=== PATIENT | female | born 1955 | race Caucasian/White ===

== ENCOUNTER → 2018-03-05 | Outpatient (CLI) | payer OTHER ==
--- NOTE | 2018-03-05 16:00 | KCIC ---
EXAM: Lumbar spine, 3 views; pelvis and left hip, 3 views. HISTORY: Pain. COMPARISON: None. FINDINGS: Lumbar spine: Frontal, lateral and coned sacral views of the lumbar spine are obtained. There are 6 nonrib-bearing lumbar vertebral segments or there are hypoplastic T12 ribs with 5 nonrib-bearing segments. For this dictation. The last lumbar segment is considered L5. There is mild dextroscoliosis centered at L2. There is grade 1 anterolisthesis of L4 on L5, measuring 2 mm. There is mild facet arthropathy at the lower lumbar levels. Pelvis and left hip: A frontal view the pelvis and frontal and frog-leg views left hip are obtained. There is no fracture, dislocation or subluxation. There is mild bilateral acetabular and femoral head spurring. There is degenerative subchondral sclerosis involving both hips. There is a prominent right os acetabulum or chronic fragmented osteophyte. There is degenerative subchondral sclerosis involving the sacroiliac joints. IMPRESSION: 1. No acute osseous finding. 2. Mild multilevel degenerative change involving the lumbar spine. 2. Mild bilateral hip osteoarthritis. Electronically signed by: Esther Cruz MD (03/05/2018 3:56 PM) [facility]-KCIC1
== END | disposition home or self-care (01) ==
LOC: KCIC 14:49
PROVIDERS: ATTEND Nurse Practitioner Family
DX: M16.12 Unilateral primary osteoarthritis, left hip (principal); M16.11 Unilateral primary osteoarthritis, right hip; M47.896 Other spondylosis, lumbar region
CPT/HCPCS: 72100; 73502

== ENCOUNTER 2018-03-27 11:13 | Emergency (ER) | payer OTHER ==
[~2018-03-27] VITALS: Ht 154.9 cm; Wt 96.2 kg
[2018-03-27 12:45] VITALS: BP 148/81
[2018-03-27] MEDS ORDERED: KETOROLAC 60 MG/2 ML VIAL. IM ONE (13:15)
[2018-03-27] MEDS ORDERED: METH4TAB2 PO (13:33)
--- NOTE | 2018-03-27 13:37 | PHYS DOC ---
Past Medical History Past Medical History: Depression, Diabetes-Type II, Other Additional Past Medical Histor: neuropathy Past Surgical History: Cholecystectomy, , Tonsillectomy Alcohol Use: None Drug Use: None Adult General Chief Complaint Chief Complaint: BACK PAIN OR INJURY HPI HPI Patient is a 62 year old female who presents with pain radiating through her left lower buttock into her leg. The patient tripped over her dog approximately one week ago. She states that this exacerbated her chronic pain that she has been experiencing since September. She denies spontaneous loss of bowel or bladder, saddle numbness or foot drop. Review of Systems Review of Systems Constitutional: Denies fever or chills [] Eyes: Denies change in visual acuity, redness, or eye pain [] HENT: Denies nasal congestion or sore throat [] Respiratory: Denies cough or shortness of breath [] Cardiovascular: No additional information not addressed in HPI [] GI: Denies abdominal pain, nausea, vomiting, bloody stools or diarrhea [] : Denies dysuria or hematuria [] Musculoskeletal: See history of present illness Integument: Denies rash or skin lesions [] Neurologic: Denies headache, focal weakness or sensory changes [] Endocrine: Denies polyuria or polydipsia [] All other systems were reviewed and found to be within normal limits, except as documented in this note. Current Medications Current Medications Current Medications Medications (Trade) Dose Ordered Sig/Gerry Start Time Stop Time Status Last Admin Dose Admin Ketorolac Tromethamine (Toradol Im) 60 mg 1X ONCE 03/27/18 13:15 03/27/18 13:33 DC 03/27/18 13:15 60 MG Allergies Allergies Allergies Coded Allergies Type Severity Reaction Last Updated Verified No Known Drug Allergies 03/27/18 No Physical Exam Physical Exam Constitutional: Well developed, well nourished, no acute distress, non-toxic appearance. [] Cardiovascular:Heart rate regular rhythm, no murmur [] Lungs & Thorax: Bilateral breath sounds clear to auscultation [] Abdomen: Bowel sounds normal, soft, no tenderness, no masses, no pulsatile masses. [] Skin: Warm, dry, no erythema, no rash. [] Back: No point spinal tenderness, tenderness over left SI joint with palpation radiating into buttock, no CVA tenderness. [] Extremities: No tenderness, no cyanosis, no clubbing, ROM intact, no edema. [] Neurologic: Alert and oriented X 3, normal motor function, normal sensory function, no focal deficits noted. [] Psychologic: Affect normal, judgement normal, mood normal. [] Current Patient Data Vital Signs Vital Signs Date Time Temp Pulse Resp B/P (MAP) Pulse Ox O2 Delivery O2 Flow Rate FiO2 03/27/18 12:45 98.0 65 16 148/81 (103) 98 Room Air 98.0 EKG EKG [] Radiology/Procedures Radiology/Procedures [] Course & Med Decision Making Course & Med Decision Making Pertinent Labs and Imaging studies reviewed. (See chart for details) []The patient was given Toradol in the emergency department for pain. Dragon Disclaimer Dragon Disclaimer This electronic medical record was generated, in whole or in part, using a voice recognition dictation system. Departure Departure Impression: Primary Impression: Sciatica Disposition: HOME, SELF-CARE Condition: STABLE Referrals: JONAH DEL RIO APRN (PCP) Patient Instructions: Sciatica Additional Instructions: Take the medication as directed. Watch her blood sugars closely while you're taking this medication. Keep your follow-up appointments with your primary care provider as scheduled or sooner if worsening. Scripts Methylprednisolone (MEDROL) 4 Mg Tab.ds.pk 1 PKG PO UD for sciatica, #1 PKG Prov: BRANDIN WEBBER APRN 03/27/18 BRANDIN WEBBER APRN Mar 27, 2018 13:37
== END 2018-03-27 14:14 | disposition home or self-care (01) ==
LOC: ER 11:13
DX: M54.42 Lumbago with sciatica, left side (principal); G89.29 Other chronic pain; E11.40 Type 2 diabetes mellitus with diabetic neuropathy, unspecified; Z90.49 Acquired absence of other specified parts of digestive tract
CPT/HCPCS: 96372; 99284; J1885

== ENCOUNTER → 2019-01-14 | Outpatient (CLI) | payer OTHER ==
[~2019-01-14] MED LIST: METH4TAB2 PO
--- NOTE | 2019-01-14 16:53 | KCIC ---
EXAMINATION: Magnetic resonance imaging (MRI) of the lumbar spine without contrast 01/14/2019 4:15 PM HISTORY: Lumbar pain with radiation down left leg. TECHNIQUE: Multiplanar multi-weighted MRI of the lumbar spine was performed without intravenous contrast using the standard lumbar spine protocol. Contrast information: None administered. COMPARISON: None available. FINDINGS: The alignment of the lumbar spine is normal. Vertebral bodies demonstrate normal signal intensity on all sequences. There are no compression fractures. The conus medullaris terminates at the level of L1. The distal spinal cord signal intensity is normal. Mild disc desiccation is noted at L2-L3, L3-L4 and L4-L5. Limited views of the abdomen and pelvis show no soft tissue abnormality. The aorta is normal. Mild congenital narrowing of the spinal canal secondary to shortened pedicles. Findings are most prominent at L3-L4. L2-L3: The disc is normal in configuration. There is mild facet arthropathy. There is no neuroforaminal stenosis. There is no spinal canal stenosis. L3-L4: The disc is normal in configuration. There is moderate facet arthropathy. There is no neuroforaminal stenosis. There is no spinal canal stenosis. L4-L5: Mild disc bulge. There is moderate facet arthropathy. There is mild right neuroforaminal stenosis. There is no spinal canal stenosis. L5-S1: The disc is normal in configuration. There is mild to moderate facet arthropathy. There is no neuroforaminal stenosis. There is no spinal canal stenosis. IMPRESSION: Mild degenerative changes are present, as described in detail above. Electronically signed by: Columba Mendoza MD (01/14/2019 4:50 PM) [facility]-KCIC1
== END | disposition home or self-care (01) ==
LOC: KCIC MRI 16:04
PROVIDERS: ATTEND Nurse Practitioner Family
DX: M47.816 Spondylosis without myelopathy or radiculopathy, lumbar region (principal); M48.061 Spinal stenosis, lumbar region without neurogenic claudication; M12.88 Other specific arthropathies, not elsewhere classified, other specified site; Z90.89 Acquired absence of other organs; Z90.49 Acquired absence of other specified parts of digestive tract
CPT/HCPCS: 72148

== ENCOUNTER → 2019-02-28 | Outpatient (CLI) | payer OTHER ==
--- NOTE | 2019-02-28 15:05 | KCIC ---
EXAM: Carotid Doppler sonogram. HISTORY: Diabetic retinopathy. TECHNIQUE: Sarah scale and color Doppler sonographic evaluation of the neck with spectral waveform analysis was performed and static images are submitted for review. FINDINGS: There is mild atherosclerotic plaque within the carotid bifurcations. The peak systolic velocity within the right common carotid artery is 117 cm/sec. The peak systolic velocity within the right internal carotid artery is 75 cm/sec and the end diastolic velocity within the right internal carotid artery is 25 cm/sec. The right ICA/CCA ratio is 0.96. The peak systolic velocity within the left common carotid artery is 72 cm/sec. The peak systolic velocity within the left internal carotid artery is 75 cm/sec and the end diastolic velocity within the left internal carotid artery is 29 cm/sec. The left ICA/CCA ratio is 1.04. There is normal antegrade flow within both vertebral arteries. IMPRESSION: No Doppler evidence of hemodynamically significant stenosis within the carotid or vertebral arteries. PQRS Compliance Statement - Stenosis calculations for CT, MR and conventional angiography are based upon measurement of the distal ICA diameter in accordance with the NASCET methodology. Stenosis calculations for carotid ultrasound studies are derived from validated velocity criteria which are known to correlate with the NASCET methodology. Electronically signed by: Esther Cruz MD (02/28/2019 3:02 PM) [id number]
== END | disposition home or self-care (01) ==
LOC: KCIC US 14:14
PROVIDERS: ATTEND Nurse Practitioner Family
DX: I65.23 Occlusion and stenosis of bilateral carotid arteries (principal); E11.3599 Type 2 diabetes mellitus with proliferative diabetic retinopathy without macular edema, unspecified eye
CPT/HCPCS: 93880

== ENCOUNTER → 2020-03-19 | Outpatient (CLI) | payer OTHER ==
[~2020-03-19] MED LIST changes: +ACET325T9 PO; +CITA10TA4 PO; +DAPA5TAB PO; +GABA-585 PO; +GABA300C18 PO; +LISI1TAB20 PO; +MELO15TA23 PO; +METF100010 PO; +OMEG10005 PO; +VITA1TAB31 PO
[2020-03-19 10:40] LABS: CHOLESTEROL/HDL RATIO 3.4
== END ==
LOC: LAB 09:20
PROVIDERS: ATTEND Specialist
DX: E11.69 Type 2 diabetes mellitus with other specified complication (principal); E78.5 Hyperlipidemia, unspecified
CPT/HCPCS: 36415; 80061

== ENCOUNTER → 2020-03-19 | Outpatient (CLI) | payer OTHER ==
[2020-03-19 10:11] LABS: BASO # 0.1 x10^3/uL (0.0-0.2); BASO % 1 % (0-3); EOS # 0.1 x10^3/uL (0.0-0.7); EOS % 1 % (0-3); HEMATOCRIT 41.9 % (36.0-47.0); HEMOGLOBIN 14.5 g/dL (12.0-15.5); LYMPH # 2.4 x10^3/uL (1.0-4.8); LYMPH % 41 % (24-48); MEAN CORPUSCULAR HEMOGLOBIN 33 pg (25-35); MEAN CORPUSCULAR HGB CONC 35 g/dL (31-37); MEAN CORPUSCULAR VOLUME 94 fL (79-100); MONO # 0.3 x10^3/uL (0.0-1.1); MONO % 6 % (0-9); NEUT # 2.9 x10^3/uL (1.8-7.7); NEUT % 51 % (31-73); PLATELET COUNT 253 x10^3/uL (140-400); RED BLOOD COUNT 4.45 x10^6/uL (3.50-5.40); RED CELL DISTRIBUTION WIDTH 12.9 % (11.5-14.5); WHITE BLOOD COUNT 5.8 x10^3/uL (4.0-11.0)
[2020-03-19 10:25] LABS: PROTHROMBIN TIME PATIENT 12.9 SEC (11.7-14.0)
--- NOTE | 2020-03-19 10:26 | EKG ---
[facility] [address] [place] [address] Test Date: 2020-03-19 Test Time: 10:22:47 Pat Name: VANESSA BALL Department: Room: Gender: F [employer] Operator: : 1955 Requested By: JUAN ANTONIO LENNON Order Number: [id number] Reading MD: Clint Guerra MD Measurements Intervals Wagner Rate: 87 P: 7 NV: 180 QRS: -5 QRSD: 86 T: 39 QT: 364 QTc: 439 Interpretive Statements SINUS RHYTHM NON-SPECIFIC ST/T CHANGES Electronically Signed On 03-20-2020 8:43:59 CONSTRUCTION PRODUCER by Clint Guerra MD
[2020-03-19 10:31] LABS: ALBUMIN 4.1 g/dL (3.4-5.0); C-REACTIVE PROTEIN 1.9 mg/L (0-3.3); CALCIUM 9.9 mg/dL (8.5-10.1); CREATININE 0.9 mg/dL (0.6-1.0); POTASSIUM 3.6 mmol/L (3.5-5.1)
--- NOTE | 2020-03-19 13:13 | RAD ---
Two-view chest dated 03/19/2020. Comparison made to 12/07/2010. Clinical data indication: Preop for hip replacement. FINDINGS: PA and lateral views obtained. Heart and mediastinal contours are stable. Lungs are clear. No consoli dation or pleural effusion. No pneumothorax. Mildly prominent perihilar linear markings, unchanged. IMPRESSION: No acute radiographic abnormality. Stable findings compared to 12/07/2010. Electronically signed by: Freddy Rodriguez MD (03/19/2020 1:11 PM) [id number]
[2020-03-20 01:10] LABS: HEMOGLOBIN A1C 6.9 % (4.8-5.6)
== END ==
LOC: SURGPAT 09:15
PROVIDERS: ATTEND Orthopaedic Surgery
DX: Z01.818 Encounter for other preprocedural examination (principal); M16.12 Unilateral primary osteoarthritis, left hip
CPT/HCPCS: 36415; 71046; 80048; 82040; 82306; 83036; 85025; 85610; 85730; 86140; 87641; 93005

== ENCOUNTER → 2020-04-05 | Outpatient (CLI) | payer OTHER ==
[~2020-04-05] MED LIST changes: +OXYC5CAP PO; +TRAM50TA PO; +WARF4TAB64 PO
== END ==
LOC: LAB 10:05
PROVIDERS: ATTEND Orthopaedic Surgery
DX: Z01.812 Encounter for preprocedural laboratory examination (principal); Z20.828 Contact with and (suspected) exposure to other viral communicable diseases; M16.12 Unilateral primary osteoarthritis, left hip
CPT/HCPCS: U0003

== ENCOUNTER 2020-04-10 07:19 | Observation (INO) | payer OTHER ==
[2020-04-10] VITALS (9 sets, daily range): BP systolic 102–139; BP diastolic 56–79
[~2020-04-10] VITALS: Ht 154.9 cm; Wt 208.0 kg
[~2020-04-10 07:19] MED LIST changes: +ACETAMINOPHEN 500 MG TABLET PO PRN; +GABAPENTIN 300 MG CAPSULE. PO PRN; +MELOXICAM 7.5 MG TABLET PO PRN; +MORPHINE SULFATE 5 MG, KETOROLAC 30MG VIAL 30 MG, ROPIVacaine 0.5% PF 60 ML, EPINEPHrin... INT ART ONE; -OXYC5CAP PO; -TRAM50TA PO; +TRANEXAMIC ACID 1,000 MG in IV NS 50ML -- 1ST BAG INJ ONE; -WARF4TAB64 PO
[2020-04-10] MEDS ORDERED: TRANEXAMIC ACID 1,000 MG in IV NS 50ML -- 2ND BAG INJ ONE (08:00)
[2020-04-10] MEDS ORDERED: VANCOMYCIN 1GM IVPB FOR OMNI 250 ML IV ONE (08:30)
[2020-04-10] MEDS ORDERED: ROCURONIUM 50 MG/5 ML VIAL. ONE (08:33)
[2020-04-10] MEDS ORDERED: PROPOFOL 10 MG/ML (20ML) VIAL. IV ONE (08:33)
[2020-04-10] MEDS ORDERED: LIDOCAINE 2% PF 5 ML VIAL. ONE (08:33)
[2020-04-10] MEDS ORDERED: fentaNYL PF VIAL 250 MCG/5 ML VIAL ONE (08:33)
--- NOTE | 2020-04-10 08:36 | HP ---
ADMIT DATE: 04/10/2020 CHIEF COMPLAINT: Left hip pain. 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 It is much more severe on startup and with activities and unresponsive to nonoperative management. PAST MEDICAL HISTORY: Significant for type 2 diabetes and hypertension. SURGICAL HISTORY: Cholecystectomy, tonsil/adenoidectomy, breast biopsy, , diabetic retinopathy in her left eye, for which she underwent laser surgery. FAMILY HISTORY: Significant for her mother, who is with breast cancer and type 2 diabetes, heart disease, type 2 diabetes, heart attack, hypertension, and lung disease in her father. Brother and sister are alive and healthy. SOCIAL HISTORY: She is a former smoker, quit well over 10 years ago. Occasional social alcohol consumption. Denies drug use. She is . 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 ALLERGIES: INCLUDE ILOSONE, WHICH CAUSED HER BLEEDING; this is an older drug been withdrawn from the market years ago and A FOOD ALLERGY TO BANANAS. REVIEW OF SYSTEMS: She denies any chest pain, shortness of breath, recent febrile illness or constitutional symptoms. Left hip pain is progressive, however. PHYSICAL EXAMINATION: VITAL SIGNS: Per admission sheet. HEENT: Atraumatic, normocephalic. HEART: Regular rate and rhythm. LUNGS: Clear to auscultation bilaterally. ABDOMEN: Benign. EXTREMITIES: Examination of the left hip reveals a decreased terminal range of motion in all planes. Pain at her already decreased terminal range of motion. Leg lengths are equal. There is no instability. Negative straight leg raise sign. Normal examination of the right hip. Normal alignment and stability, bilateral knees and ankles. IMAGING: X-rays show severe degenerative change with loss of joint space in the left hip joint. IMPRESSION: Degenerative left hip. TREATMENT PLAN: We had covered risks, benefits, postoperative course of total hip arthroplasty as she has not responded to nonoperative management. We talked about the possibility of infection, leg length inequality, premature wear or loosening, instability, nerve or blood vessel damage, medical or other anesthetic complications among others and she wishes to proceed with surgical evaluation and treatment with joint center observation to follow. JUAN ANTOINO LENNON MD DR: MARIAH/eile JOB#: [id number] / [id number]
[2020-04-10] MEDS ORDERED: IV RINGERS,LACTATED 1000ML 1,000 ML IV SCH ×2 (09:00→12:15)
[2020-04-10] MEDS ORDERED: VANCOMYCIN 1 GM VIAL. ONE (09:21)
[2020-04-10] MEDS ORDERED: INSULIN LISPRO 100 UNIT/ML 3ML VIAL for OP,RR ONLY. SQ PRN (09:45)
[2020-04-10] MEDS ORDERED: ePHEDrine PF IN SALINE 50 MG/10 ML SYRINGE. IV ONE (09:51)
[2020-04-10] MEDS ORDERED: ONDANSETRON PF 4 MG/2 ML VIAL. ONE (10:26)
[2020-04-10] MEDS ORDERED: NEOSTIGMINE METHYLSULFATE 5 MG/5 ML SYRINGE. ONE (10:26)
[2020-04-10] MEDS ORDERED: GLYCOPYRROLATE 1 MG/5 ML VIAL. ONE (10:26)
[2020-04-10] MEDS ORDERED: SEVOFLURANE 61 TO 120 MINUTES. IH ONE (10:26)
[2020-04-10 10:32] LABS: PROTHROMBIN TIME PATIENT 12.2 SEC (11.7-14.0)
[2020-04-10] MEDS ORDERED: HYDROmorphone 2 MG/ML VIAL ONE (10:37)
[2020-04-10] MEDS ORDERED: fentaNYL PF VIAL 100 MCG/2 ML VIAL IVP PRN (11:30)
[2020-04-10] MEDS ORDERED: CALCIUM CARBONATE 500 MG TAB.CHEW PO PRN (11:30)
[2020-04-10] MEDS ORDERED: 0.9 % SODIUM CHLORIDE 10 ML DISP.SYRIN. IV PRN (11:30)
[2020-04-10] MEDS ORDERED: MORPHINE SULFATE 2 MG/ML VIAL. IVP PRN (11:30)
[2020-04-10] MEDS ORDERED: ZOLPIDEM 5 MG TABLET. PO PRN (11:30)
[2020-04-10] MEDS ORDERED: DEXTROSE 50% 25 GM / 50ML DISP.SYRIN. IV PRN (11:30)
[2020-04-10] MEDS ORDERED: diphenhydrAMINE 50 MG/ML VIAL IVP PRN (11:30)
[2020-04-10] MEDS ORDERED: IV NORMAL SALINE 1000ML BAG 1,000 ML IV SCH (11:30)
[2020-04-10] MEDS ORDERED: PROCHLORPERAZINE 5 MG TABLET. PO PRN (11:30)
[2020-04-10] MEDS ORDERED: fentaNYL PF VIAL 100 MCG/2 ML VIAL ONE (11:56)
[2020-04-10] MEDS: ONDANSETRON ODT 4 MG TAB.RAPDIS. PO SCH ×2 (12:00→18:35)
[2020-04-10] MEDS: ONDANSETRON PF 4 MG/2 ML VIAL. IVP SCH (12:00)
[2020-04-10] MEDS ORDERED: PROCHLORPERAZINE 10 MG/2 ML VIAL. IV PRN (12:15)
[2020-04-10] MEDS ORDERED: ONDANSETRON PF 4 MG/2 ML VIAL. IV PRN (12:15)
[2020-04-10] MEDS ORDERED: fentaNYL PF VIAL 100 MCG/2 ML VIAL IV PRN ×2 (12:15)
[2020-04-10] MEDS ORDERED: LIDOCAINE 1% PF 2 ML VIAL. ID PRN (12:15)
[2020-04-10] MEDS ORDERED: MORPHINE SULFATE 2 MG/ML VIAL. IV PRN (12:15)
[2020-04-10] MEDS ORDERED: HYDROmorphone 2 MG/ML VIAL IV PRN (12:15)
[2020-04-10] MEDS: LISINOPRIL 20 MG TABLET PO SCH (13:00)
[2020-04-10] MEDS: hydroCHLOROthiazide 25 MG TABLET PO SCH (13:00)
--- NOTE | 2020-04-10 13:03 | RAD ---
EXAM: Left hip, 2 views. HISTORY: Arthroplasty. COMPARISON: None. FINDINGS: 2 views of the left hip are obtained. There is a left hip arthroplasty in expected position . There is soft tissue gas due to recent surgery. IMPRESSION: Left hip arthroplasty in expected position. Electronically signed by: Esther Cruz MD (04/10/2020 1:00 PM) [id number]
--- NOTE | 2020-04-10 14:52 | NUR ---
admitted from [facility]. son at bedside. she is alert and oriented x4. She has good sensation, pulses and pulses bilateral lower extremeities. left foot strength is slightly weaker than right. iv infusing without problem, oriented to room and call light
--- NOTE | 2020-04-10 14:58 | NUR ---
Report received from Sona. Patient had a left total hip arthroplasty (posterior), patient tolerated surgery well and isn't complaining of pain. Last vitals from PACU were BP 114/40, HR65, O2 93% on 2L.
[2020-04-10] MEDS ORDERED: WARFARIN 7.5 MG TABLET. PO ONE (16:00)
--- NOTE | 2020-04-10 16:14 | PDOC4 ---
Operative Note Operative Note Date of surgery: 04/10/2020 Preoperative diagnosis: Degenerative joint disease left hip Postoperative diagnosis: Same Operative procedure: Left total hip arthroplasty with posterior approach Surgeon [employer] Faculty Member: Keanu gaviria Anesthesia: General Estimated blood loss: 150 cc Complications: None Drains: None Operative indications: Please see my orthopedic clinic note and dictated history and physical for detailed operative indications and note that we covered risks benefits postoperative course of the procedure. All her questions were answered and she wishes to proceed with surgical evaluation and treatment having given informed consent Operative text: Patient was identified procedure verified patient placed in the lateral position on the operating table after adequate amounts of general anesthesia were administered. All bony prominences were well-padded and left hip was prepped and draped in the standard sterile fashion. After timeout was performed patient procedure identified and verified an incision was made curvilinear centered over the greater trochanter and dissection carried out down to the iliotibial band and gluteal fascia which were split in line with their fibers. A Charnley retractor was placed external rotators were divided from their insertion and hip capsule was split in a T fashion. Hip was then dislocated and femoral neck cut was made using a Ricky Avenir broach for reference and the femoral head was removed and sized noting severe degenerative change and sent for pathological evaluation. Reaming was carried out from a size 43 to a size 51 with a size 52 cluster hole cup placed in proper version and alignment under fluoroscopic guidance and achieved a very solid scratch fit and therefore no screw fixation was applied. A 36 mm vitamin E liner was impacted into place. Femur was then prepared with a box osteotome rattail rasp and successive size broaching up to a size 3 femoral trial broach standard offs et which provided excellent stability and fit within the canal. Trial fitting with a -3.5 32 mm head with a standard offset neck to reproduce leg length and offset appropriately. Trial components were removed and a size 3 standard offset collared Avenir stem was impacted into place with a -3.5 ceramic 36 mm head. Excellent stability and range of motion were noted and leg length reproduced according to measurements from the contralateral side. Thorough irrigation carried out with dilute Betadine solution and then washed further with normal saline solution and pulse lavage. Intra-articular mixture was injected subperiosteally throughout the joint capsule and subcutaneous areas. Hip capsule was repaired with max braid suture and external rotators attached transosseously with max braid suture. Fascia was closed with #1 PDS strata fix suture in a running fashion subcutaneous closure with buried Vicryl skin closure with subcuticular Monocryl and a abbey dressing was applied. Patient was returned to recovery room in stable condition having tolerated the procedure well. Keanu gaviria was present for the procedure and assisted in the patient positioning prepping draping retraction closure and dressings JUAN ANTONIO LENNON MD Apr 10, 2020 16:14
[2020-04-10] MEDS: metFORMIN 500 MG TABLET PO SCH (18:35)
[2020-04-10] MEDS: FERROUS SULFATE 325 MG TABLET. PO SCH (18:35)
[2020-04-10] MEDS: GABAPENTIN 300 MG CAPSULE. PO SCH (21:55)
[2020-04-11 02:02] VITALS: BP 115/72
[2020-04-11] MEDS: oxyCODONE IR 5 MG TABLET PO PRN ×2 (02:07→09:48)
[2020-04-11] MEDS ORDERED: MAGNESIUM HYDROXIDE 2,400 MG/30 ML ORAL.SUSP. PO PRN (06:00)
[2020-04-11] MEDS ORDERED: GABAPENTIN 100 MG CAPSULE. PO SCH (06:00)
[2020-04-11] MEDS: traMADol 50 MG TABLET PO SCH ×3 (06:23→17:22)
[2020-04-11] MEDS: ONDANSETRON ODT 4 MG TAB.RAPDIS. PO SCH ×2 (06:23)
[2020-04-11] MEDS: ONDANSETRON PF 4 MG/2 ML VIAL. IVP SCH ×2 (06:24)
[2020-04-11 06:41] VITALS: BP 142/79
[2020-04-11 07:13] LABS: PROTHROMBIN TIME PATIENT 15.5 SEC (11.7-14.0)
[2020-04-11] MEDS: GABAPENTIN 100 MG CAPSULE. PO SCH (08:10)
[2020-04-11] MEDS: ACETAMINOPHEN 500 MG TABLET PO SCH ×3 (08:10→21:03)
[2020-04-11] MEDS: metFORMIN 500 MG TABLET PO SCH ×2 (08:10→17:21)
[2020-04-11] MEDS: FERROUS SULFATE 325 MG TABLET. PO SCH ×2 (08:10→17:23)
[2020-04-11] MEDS: SENNOSIDES/DOCUSATE 8.6/50MG TABLET. PO SCH ×2 (08:10→09:00)
[2020-04-11] MEDS: MULTIVITAMIN with MINERAL TABLET. PO SCH (08:10)
[2020-04-11] MEDS: CITALOPRAM 10 MG TABLET. PO SCH ×2 (08:11→09:00)
[2020-04-11] MEDS: MELOXICAM 7.5 MG TABLET PO SCH (08:11)
[2020-04-11] MEDS ORDERED: NON FORMULARY ITEM (Dapagliflozin Propanediol (Farxiga) 5 MG) PO SCH (09:00)
[2020-04-11] MEDS: LISINOPRIL 20 MG TABLET PO SCH (09:00)
[2020-04-11] MEDS: hydroCHLOROthiazide 25 MG TABLET PO SCH (09:00)
[2020-04-11 09:28] LABS: HEMATOCRIT 31.8 % (36.0-47.0); HEMOGLOBIN 10.8 g/dL (12.0-15.5)
--- NOTE | 2020-04-11 09:52 | NUR ---
Pharmacy Warfarin Dosing Note S:Pharmacy consulted to assist with anticoagulation therapy started 04/10/20 with target INR: 1.6 - 2.5 O:VANESSA BALL is a 64 year old F with GABRIEL LABS: Last INR: 1.3 Last HGB: Last HCT: Last PLT: Last dose of 7.5 mg given on 04/10/20 at 1600 Previous Regimen: Vitamin K given: Drug Interaction Changes: New Interacting Drug Ongoing Drug Interactions: A:INR of 1.3 is below desired range. Target range for this patient is: 1.6 - 2.5 P: Warfarin dose: 5 mg Today at 1600 Bridge Therapy: None Next INR due IN AM Pharmacy anticoagulation service will continue to follow. SANDRA GARCIA [facility], 04/11/20 [id number]
--- NOTE | 2020-04-11 10:12 | NUR ---
Celexa and Senna Plus not given yesterday. Scand yesterdays dose for this am.
--- NOTE | 2020-04-11 10:15 | NUR ---
Yesterdays dose of Hydrodiuril and Prinivil not given.
[2020-04-11] MEDS ORDERED: ONDANSETRON ODT 4 MG TAB.RAPDIS. PO PRN (12:00)
[2020-04-11] MEDS ORDERED: ONDANSETRON PF 4 MG/2 ML VIAL. IVP PRN (12:00)
[2020-04-11 12:05] VITALS: BP 80/52
--- NOTE | 2020-04-11 12:58 | PDOC ---
PROGRESS NOTES Date of Service DATE: 04/11/20 TIME: 12:55 Subjective Subjective Problems overnight: Hip is sore but pain overall controlled and getting up and around reasonably well with assistance Objective Vital Signs Vital Signs Date Time Temp Pulse Resp B/P (MAP) Pulse Ox O2 Delivery O2 Flow Rate FiO2 04/11/20 12:47 Room Air 04/11/20 12:05 98.2 87 16 80/52 (61) 93 98.2 04/10/20 16:00 2.0 Physical Exam Leg lengths equal distal neurovascular status intact dressing clean dry intact hip is stable Labs Laboratory Tests Test 04/10/20 08:02 04/10/20 09:08 04/10/20 10:57 04/11/20 06:40 Prothrombin Time 12.2 SEC (11.7-14.0) 15.5 SEC (11.7-14.0) Prothromb Time International Ratio 0.9 (0.8-1.1) 1.3 (0.8-1.1) Activated Partial Thromboplast Time 32 SEC (24-38) Glucose (Fingerstick) 150 mg/dL (70-99) 133 mg/dL (70-99) Hemoglobin 10.8 g/dL (12.0-15.5) Hematocrit 31.8 % (36.0-47.0) Mean Corpuscular Hemoglobin Concent 34 g/dL (31-37) Test 04/11/20 07:40 Glucose (Fingerstick) 166 mg/dL (70-99) Laboratory Tests Test 04/11/20 06:40 04/11/20 07:40 Hemoglobin 10.8 g/dL (12.0-15.5) Hematocrit 31.8 % (36.0-47.0) Mean Corpuscular Hemoglobin Concent 34 g/dL (31-37) Prothrombin Time 15.5 SEC (11.7-14.0) Prothromb Time International Ratio 1.3 (0.8-1.1) Glucose (Fingerstick) 166 mg/dL (70-99) Imaging Postop x-rays show excellent alignment left total hip arthroplasty Assessment Assessment POD#1 left total hip arthroplasty Plan Plan of Care Mobilize with physical therapy standard total hip precautions Coumadin anticoagulation Likely home health on discharge when stable Justicifation of Admission Dx: Justifications for Admission: Justification of Admission Dx: Yes (Adjusting pain medications) CITLALLI,JUAN ANTONIO J MD Apr 11, 2020 12:58
[2020-04-11] MEDS ORDERED: WARFARIN 5 MG TABLET. PO ONE (16:00)
[2020-04-11] MEDS ORDERED: BISACODYL 10 MG SUPP.RECT. PR PRN (16:00)
[2020-04-11 18:55] VITALS: BP 106/69
[2020-04-11] MEDS: GABAPENTIN 300 MG CAPSULE. PO SCH (21:03)
[2020-04-12] MEDS: traMADol 50 MG TABLET PO SCH ×3 (00:50→11:51)
[2020-04-12] MEDS: ACETAMINOPHEN 500 MG TABLET PO SCH ×2 (03:09→07:46)
[2020-04-12 06:21] VITALS: BP 134/74
[2020-04-12] MEDS: GABAPENTIN 100 MG CAPSULE. PO SCH (07:47)
[2020-04-12] MEDS: CITALOPRAM 10 MG TABLET. PO SCH (07:47)
[2020-04-12] MEDS: metFORMIN 500 MG TABLET PO SCH (07:47)
[2020-04-12] MEDS: SENNOSIDES/DOCUSATE 8.6/50MG TABLET. PO SCH (07:47)
[2020-04-12] MEDS: MULTIVITAMIN with MINERAL TABLET. PO SCH (07:47)
[2020-04-12] MEDS: FERROUS SULFATE 325 MG TABLET. PO SCH (07:47)
[2020-04-12] MEDS: MELOXICAM 7.5 MG TABLET PO SCH (07:48)
[2020-04-12] MEDS: hydroCHLOROthiazide 25 MG TABLET PO SCH (07:51)
[2020-04-12] MEDS: LISINOPRIL 20 MG TABLET PO SCH (07:51)
[2020-04-12] MEDS ORDERED: OXYC5CAP PO ×2 (08:30→11:03)
--- NOTE | 2020-04-12 08:32 | SNU/HH DC ---
DISCHARGE WITH HOME HEALTH DISCHARGE INFORMATION: Condition on Discharge: Stable CODE STATUS: Code Status: Full HOME HEALTH: Face to Face: I certify this patient is under my care and that I, or a nurse practitioner or physician's real estate legal assistant working with me, had a face to face encounter that meets the physician face to face encounter requirements with this patient on [04/12/20]. Medical Complications: S/P Joint Replacement [facility] For: Assess/Skilled Observatio RN For Eval/Treatment: Yes Physical Therapy For: Evalulation/Treatment Pt Meets Homebound Status: Limited distance walking POST DISCHARGE ORDERS: DIET AFTER DISCHARGE: Regular Wound/Incision Care: Ice to area for comfort, Do not change dressing (Call if dressing is saturated or leaking) FOLLOW-UP: Follow up with: Dr. Louise 2 weeks postop Warfarin Follow UP: Dosage and testing per [facility] CERTIFICATION STATEMENT: Certification Statement: Certification Statement: Based on the above finding, I certify that this patient is confined to the home and needs intermittent residential care, physical therapy and/or speech therapy, or continues to need occupational therapy.~ This patient is under my care, and I have initiated the establishment of the plan of care.~ This patient will be followed by myself or a community physician who will periodically review the plan of care. Home Meds Reported Medications Acetaminophen (TYLENOL) 325 Mg Tablet, 500 MG PO BID PRN for PAIN, TAB 03/19/20 Serena-3 Fatty Acids (OMEGA-3) 1,000 Mg Capsule, 4000 MG PO DAILY for supplement, CAP 03/19/20 Vitamin D3/Vitamin K2 (D3 + K2 DOTS 1,000 UNITS TAB) 1 Each Tab.rapdis, 2 TAB PO DAILY for vitamin for 30 Days, #60 TAB 0 Refills 03/19/20 Citalopram Hydrobromide (CITALOPRAM HBR) 10 Mg Tablet, 1 TAB PO DAILY for depression, #30 TAB 3 Refills 03/19/20 Meloxicam (MELOXICAM) 15 Mg Tablet, 1 TAB PO DAILY for pain for 30 Days, #30 TAB 0 Refills 03/19/20 Dapagliflozin Propanediol (FARXIGA) 5 Mg Tablet, 5 MG PO DAILY for diabetes, TAB 03/19/20 Lisinopril/Hydrochlorothiazide (LISINOPRIL-HCTZ 20-25 MG TAB) 1 Each Tablet, 1 TAB PO DAILY for htn, #30 TAB 5 Refills 03/19/20 Gabapentin (NEURONTIN ) 300 Mg Capsule, 300 MG PO HS for NEUROGENIC PAIN, CAP 03/19/20 Gabapentin (GABAPENTIN ) 100 Mg Capsule, 200 MG PO DAILY for NEUROGENIC PAIN, CAP 03/19/20 Metformin Hcl (METFORMIN HCL ER) 1,000 Mg Tab.er.24, 1000 MG PO BID for ANTI- DIABETIC, TAB 0 Refills 03/19/20 JUAN ANTONIO LOUISE MD Apr 12, 2020 08:32
[2020-04-12 08:45] LABS: PROTHROMBIN TIME PATIENT 18.6 SEC (11.7-14.0)
--- NOTE | 2020-04-12 10:44 | NUR ---
Pharmacy Warfarin Dosing Note S: Pharmacy consulted to assist with anticoagulation therapy started 04/10/20 O: VANESSA BALL is a 64 year old F with GABRIEL LABS: Last INR: 1.6 Last HGB: Last HCT: Last PLT: Last dose of 5 mg given on 04/11/20 at 1600 Vitamin K given: NONE Ongoing Drug Interactions: MILOXICAN, CELEXA A:INR of 1.6 is desired range. Target range for this patient is: 1.6 - 2.5 P: Warfarin dose: DISCHARGED HOME WITH 4MG #42 Bridge Therapy: None Next due Pharmacy anticoagulation service will continue to follow. SANDRA GARCIA [facility], 04/12/20 [id number]
[2020-04-12] MEDS ORDERED: WARF4TAB64 PO (10:49)
[2020-04-12] MEDS ORDERED: TRAM50TA PO (11:08)
[2020-04-12 12:17] LABS: HEMATOCRIT 30.1 % (36.0-47.0); HEMOGLOBIN 10.4 g/dL (12.0-15.5)
[2020-04-12] MEDS ORDERED: WARFARIN 4 MG TABLET. PO ONE (14:00)
[2020-04-12 15:00] VITALS: BP 128/83
--- NOTE | 2020-04-12 15:35 | NUR ---
Discharge instructions given with prescriptions. Answered questions and concerns. Verbalized understanding. Pt discharged home accompanied by family. Escorted out by w/c.
--- NOTE | 2020-04-13 18:48 | PATHOLOGY ---
[facility] Accession Number: [id number] . 01 Material submitted: . femur - LEFT FEMORAL HEAD. Modifiers: left . 01 Clinical history: . OSTEOARTHRITIS,L TOTAL HIP ORTHOPLASTY POSTERIOR . 02 Diagnosis: Femoral head, posterior left total hip arthroplasty: - Advanced degenerative arthritis with focal nodular subarticular fibrosis and focal cystic degeneration. (JPM:karina; 04/13/2020) QMS 04/13/2020 1041 Local . 02 Electronically signed: . Karl Hartley MD, Pathologist NPI- [id number] . 01 Gross description: . The specimen is received in formalin, labeled "Nisha Shi, left femoral head". Received is a femoral head with attached femoral neck measuring 4.8 x 4.7 x 4.6 cm in greatest dimensions. The articular surface is smooth to irregular in contour with evidence of eburnation. Osteophytic lipping is identified. Sectioning reveals yellow-toney cut surfaces displaying a well-demarcated pale toney possible nodule measuring 1.2 cm in greatest dimensions. The specimen is submitted representatively in cassette A1, following decalcification. (CAA; 04/11/2020) QAC/QAC 04/11/2020 1804 Local . 02 Pathologist provided ICD-10: M16.12 . 02 CPT . 101299, 514701 Specimen Comment: A courtesy copy of this report has been sent to [phone] Specimen Comment: Report sent to Performed at: 01 [facility] [address], [place] [id number] MD Jeremy Molina MD Phone: [phone] Performed at: 02 [facility] [address], [place] [id number] MD Karl Hartley MD Phone: [phone]
== END 2020-04-12 15:35 | disposition home or self-care (01) ==
LOC: SURG 07:19 → 4 SOUTHEST 11:21
PROVIDERS: ADMIT Orthopaedic Surgery; ATTEND Orthopaedic Surgery
DX: M16.12 Unilateral primary osteoarthritis, left hip (principal); I10 Essential (primary) hypertension; E11.319 Type 2 diabetes mellitus with unspecified diabetic retinopathy without macular edema; Z87.891 Personal history of nicotine dependence; Z96.642 Presence of left artificial hip joint; Z90.49 Acquired absence of other specified parts of digestive tract; Z98.890 Other specified postprocedural states; Z98.891 History of uterine scar from previous surgery
CPT/HCPCS: 27130; 36415; 73502; 82962; 85014; 85018; 85610; 85730; 86850; 86900; 86901; 96365; 96366; 97110; 97116; 97150; 97162; 97166; 97530; 97535; C1776; G0378; G0379; J0171; J0690; J1170; J1885; J2270; J2405; J2704; J2710; J2795; J3010; J3370; J3490; 73501; 88304; 88311

== ENCOUNTER 2021-05-27 11:04 | Emergency (ER) | payer OTHER ==
[~2021-05-27] VITALS: Ht 154.9 cm; Wt 95.4 kg
[~2021-05-27 11:04] MED LIST changes: -ACETAMINOPHEN 500 MG TABLET PO PRN; -CITA10TA4 PO; +CITA10TA5 PO; -GABAPENTIN 300 MG CAPSULE. PO PRN; -LISI1TAB20 PO; +LISI1TAB39 PO; -MELOXICAM 7.5 MG TABLET PO PRN; -MORPHINE SULFATE 5 MG, KETOROLAC 30MG VIAL 30 MG, ROPIVacaine 0.5% PF 60 ML, EPINEPHrin... INT ART ONE; +OXYC5CAP PO; +TRAM50TA PO; -TRANEXAMIC ACID 1,000 MG in IV NS 50ML -- 1ST BAG INJ ONE; +WARF4TAB64 PO
--- NOTE | 2021-05-27 11:44 | PHYS DOC ---
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 She states that she went to stand up got lightheaded and passed out. She states this will happen to her intermittently. But she never usually passes out. Patient states that she hit her head on the left side on the floor she also hit her knee which is painful. She states she still feels lightheaded but the room is not spinning. She denies blood thinners. She denies pain, shortness of breath, fever, cough, abdominal pain, nausea, vomiting, diarrhea, vision change at this time, new numbness or tingling, focal weakness, urinary symptoms. She rates her headache in her neck pain and knee pain around a 6 out of 10. She has a history of hypertension, neuropathy, diabetes, osteoarthritis, cholecystectomy and tonsillectomy. Review of Systems: Review of Systems: Constitutional: Denies fever or chills. [] Eyes: Denies change in visual acuity. [] HENT: Denies nasal congestion or sore throat. [] Respiratory: Denies cough or shortness of breath. [] Cardiovascular: Denies chest pain or edema. [] GI: Denies abdominal pain, nausea, vomiting, bloody stools or diarrhea. [] : Denies dysuria. [] Musculoskeletal: Denies back pain or + left knee joint pain. [] Integument: Denies rash. [] Neurologic: Denies headache, focal weakness or sensory changes. + Syncope, + lightheadedness [] Endocrine: Denies polyuria or polydipsia. [] Lymphatic: Denies swollen glands. [] Psychiatric: Denies depression or anxiety. [] Heart Score: C/O Chest Pain: No HEART Score for Chest Pain: HEART Score for Chest Pain Response (Comments) Value History Slighlty/Non-Suspicious 0 ECG Nonspecific Repolarizatio 1 Age > 65 2 Risk Factors 1 or 2 Risk Factors 1 Troponin < Normal Limit 0 Total 4 Risk Factors: Risk Factors: DM, Current or recent (<one month) smoker, HTN, HLP, family history of CAD, obesity. Risk Scores: Score 0 - 3: 2.5% MACE over next 6 weeks - Discharge Home Score 4 - 6: 20.3% MACE over next 6 weeks - Admit for Clinical Observation Score 7 - 10: 72.7% MACE over next 6 weeks - Early Invasive Strategies Allergies: Allergies: Allergies Coded Allergies Type Severity Reaction Last Updated Verified erythromycin base Allergy Severe 03/19/20 Yes banana Allergy Intermediate Swelling 03/19/20 Yes I S O L A T I O N *CONTACT* Allergy Unknown 03/22/20 Yes Physical Exam: PE: Constitutional: Well developed, well nourished, no acute distress, non-toxic appearance. [] HENT: Normocephalic, atraumatic, bilateral external ears normal, oropharynx moist, no oral exudates, nose normal. [] Eyes: PERRLA, EOMI, conjunctiva normal, no discharge. [] Neck: Normal range of motion, no tenderness, supple, no stridor. [] Cardiovascular:Heart rate regular right bundle branch block rhythm, no murmur [] Lungs & Thorax: Bilateral breath sounds clear to auscultation [] Abdomen: Bowel sounds normal, soft, no tenderness, no masses, no pulsatile masses. [] Skin: Warm, dry, no erythema, no rash. [] Back: No tenderness, no CVA tenderness. [] Extremities: No tenderness, no cyanosis, no clubbing, ROM intact, no edema. [] Neurologic: Alert and oriented X 3, normal motor function, normal sensory function, no focal deficits noted. [] Psychologic: Affect normal, judgement normal, mood normal. [] Current Patient Data: Vital Signs: Vital Signs Date Time Temp Pulse Resp B/P (MAP) Pulse Ox O2 Delivery O2 Flow Rate FiO2 05/27/21 11:04 97.6 86 18 131/74 (93) 100 Room Air 97.6 EKG: EK and read by Dr. March as a sinus rhythm with a right bundle branch block but no STEMI Radiology/Procedures: Radiology/Procedures: [] Impression: [facility] [address] [place] [address] IMAGING REPORT Signed PATIENT: VANESSA BALL ACCOUNT: [id number] : 1955 LOCATION: ER AGE: 65 SEX: F EXAM STATUS: REG ER ORD. PHYSICIAN: BAHMAN BENTLEY APRN REASON: FALL, PAIN PROCEDURE: KNEE LEFT 4V EXAM: Left knee, 4 views; chest single view. HISTORY: Fall. Pain. COMPARISON: None. FINDINGS: Chest: A frontal view of the chest is obtained. There is a small nodular opacity overlying the right lower thorax possibly due to overlying osseous shadows. There is no consolidation, pleural effusion or pneumothorax. The heart is normal in size. Left knee: 4 views of the left knee are obtained. There is medial and patellofemoral compartment joint space narrowing, subchondral sclerosis and marginal spurring. There is also moderate lateral compartment spurring. There is a small joint effusion. There is an infrapatellar joint loose body. IMPRESSION: 1. No acute pulmonary finding. 2. Severe medial and patellofemoral compartment predominant osteoarthritis of the left knee with small joint effusion and joint loose body. 3. Small nodular opacity overlying the right lower thorax possibly due to overlying osseous artifact. Short-term sonographic follow-up or lateral radiograph may be useful to exclude a noncalcified nodule in this location. Electronically signed by: Esther Allen MD (05/27/2021 11:52 AM) [id number] DICTATED and SIGNED BY: ESTHER ALLEN MD DATE: 05/27/[id number] [facility] [address] [place] [address] IMAGING REPORT Signed PATIENT: VANESSA BALL ACCOUNT: [id number] : 1955 LOCATION: ER AGE: 65 SEX: F EXAM STATUS: REG ER ORD. PHYSICIAN: BAHMAN BENTLEY APRN REASON: SYNCOPE, HIT FLOOR, LIGHT HEADED PROCEDURE: CT HEAD AND CERVICAL SPINE WO STUDY: CT head and cervical spine without contrast INDICATION: Syncope. Fall. COMPARISON: None. TECHNIQUE: Axial CT imaging through the head and cervical spine without the use of intravenous contrast. Sagittal and coronal reformats were obtained. One or more of the following individualized dose reduction techniques were utilized for this examination: 1. Automated exposure control 2. Adjustment of the mA and/or kV according to patient size 3. Use of iterative reconstruction technique. FINDINGS: CT head: No acute intracranial hemorrhage. No mass effect, midline shift or hydrocephalus. Sarah-white matter differentiation is maintained. No depressed calvarial fracture. No layering fluid seen within the visualized paranasal sinuses. Well aerated mastoid air cells and middle ears. CT cervical spine: Degraded study secondary to beam attenuation mainly below C4. No acute fracture. No traumatic malalignment. Multilevel degenerative changes with associated grade 1 anterolisthesis of C4 on C5 and C5 on C6. Central canal stenosis favored greatest at C6-C7. Osseous neural foraminal stenosis ranging from mild to moderate in severity and favored greatest on the right at C5-C6. No paraspinous hematoma to indicate an occult fracture. Vascular calcifications. No apical pneumothorax. IMPRESSION: CT head: 1. No acute intracranial abnormality by CT. Intact calvarium. CT cervical spine: 1. No acute fracture or traumatic malalignment. 2. Varying extent of multifactorial degenerative changes of the cervical and upper thoracic spine with central canal stenosis estimated up to moderate such as at C6-C7. Electronically signed by: JAN ELIAS MD (05/27/2021 12:49 PM) [facility] DICTATED and SIGNED BY: JAN ELIAS MD DATE: 05/27/[id number] [facility] [address] [place] [address] IMAGING REPORT Signed PATIENT: VANESSA BALL ACCOUNT: [id number] : 1955 LOCATION: ER AGE: 65 SEX: F EXAM STATUS: REG ER ORD. PHYSICIAN: BAHMAN BENTLEY APRN REASON: NEW RBB, SYNCOPE. R/O PE PROCEDURE: CT ANGIOGRAPHY CHEST EXAM: CT angiography of the chest with intravenous contrast. HISTORY: Syncope. Right frontal branch block. TECHNIQUE: Computed tomographic images of the chest were obtained following the administration of intravenous contrast according to angiography protocol. Multiplanar reformatting was performed and three dimensional maximum intensity projection images were obtained. *One or more of the following individualized dose reduction techniques were utilized for this examination: 1. Automated exposure control. 2. Adjustment of the mA and/or kV according to patient size. 3. Use of iterative reconstruction technique. COMPARISON: None. FINDINGS: There is no convincing pulmonary embolism. The heart is normal in size. The aorta is normal in caliber. There are nonspecific mediastinal and hilar lymph nodes. These are likely physiologic or reactive in etiology. There is no pleural effusion or pneumothorax. There is a 2 mm benign peripheral nodular opacity within the lateral right upper lobe (series 3, image 41). This may be a faintly calcified granuloma. There is bilateral posterior dependent and basilar atelectasis. There is lingular and right middle lobe scarring. There is no acute finding involving the upper abdomen. There is a 2.1 cm right adrenal nodule, the attenuation of which is greater than expected for an adenoma. There is suspected hepatic steatosis. There is colonic diverticulosis. There are degenerative changes involving the spine. There is no acute osseous finding. IMPRESSION: 1. No evidence of pulmonary embolism or acute infiltrate. 2. Nonspecific mediastinal and hilar lymph nodes, likely physiologic or reactive. 3. 2.1 cm right adrenal nodule, the attenuation of which is slightly greater than expected for an adenoma. In the absence of prior studies to assess for interval change, evaluation with an adrenal protocol CT or MRI can be performed for characterization. 4. Incidental colonic diverticulosis and suspected hepatic steatosis. Electronically signed by: Esther Allen MD (05/27/2021 3:22 PM) [id number] DICTATED and SIGNED BY: ESTHER ALLEN MD DATE: 05/27/21 [id number] 0 Course & Med Decision Making: Course & Med Decision Making pertinent Labs and Imaging studies reviewed. (See chart for details) See HPI. Alert and oriented x4. Speaks in full clear sentences. Ambulatory with a steady gait. Moving all 4 extremities equally with equal strengths. Full range of motion of the left knee that she injured with her syncopal episode. There is no swelling or bruising or deformity at this time. No abrasions or lacerations. No tenderness to the left side of her head where she hit her head on the floor. No bruising to her head. No traumatic findings to her whole body. Neurologically intact. Skin pink warm and dry. Patient however is positive for orthostatic hypotension. Patient received 2 normal saline boluses. Orthostatics were rechecked and she is now normal. She states she did not get dizzy when she stood up. CT of the chest showed no pulmonary embolism. Incidental finding of an adenoma. I am going to print off her CT results to give to her to take to her primary care doctor. I will get her referred to a extension service supervisor. Patient also has a positive nitrite UTI. She will be placed on Keflex and is given her first dose of Diflucan. She can take her second dose of Diflucan in 72 hours. Patient is steady on her feet and complains of no more dizziness. [] Dragon Disclaimer: Dragon Disclaimer: This electronic medical record was generated, in whole or in part, using a voice recognition dictation system. Departure Departure Impression: Primary Impression: Syncope Qualified Codes: R55 - Syncope and collapse Additional Impressions: Head injury Qualified Codes: S09.90XA - Unspecified injury of head, initial encounter Right bundle branch block Orthostatic hypotension Dehydration UTI (urinary tract infection) Qualified Codes: N30.00 - Acute cystitis without hematuria Yeast infection Disposition: HOME / SELF CARE / HOMELESS Condition: STABLE Referrals: JONAH DEL RIO APRN (PCP) KARTIK GRUBBS MD Patient Instructions: Candidal Vulvovaginitis, [id number], Dehydration, Adult, Orthostatic Hypotension, Syncope, Urinary Tract Infection Additional Instructions: Follow-up with your primary care provider soon as possible. Drink plenty of fluids to stay hydrated. Also follow-up for that incidental finding of the adenoma with your primary care provider for further radiology. Take medication as prescribed and with food until it is completely gone. If any symptoms worsen return emergency room. Scripts Fluconazole (DIFLUCAN) 150 Mg Tablet 1 TAB PO ONCE, #1 TAB Take on 05/30/21 Prov: BAHMAN BENTLEY APRN 05/27/21 Cephalexin (KEFLEX) 500 Mg Capsule 1 CAP PO TID, #30 CAP Prov: BAHMAN BENTLEY APRN 05/27/21 BAHMAN BENTLEY APRN May 27, 2021 11:44
[2021-05-27] MEDS ORDERED: IV NORMAL SALINE 1000ML BAG 1,000 ML IV ONE ×2 (11:45→13:00)
--- NOTE | 2021-05-27 11:54 | RAD ---
EXAM: Left knee, 4 views; chest single view. HISTORY: Fall. Pain. COMPARISON: None. FINDINGS: Chest: A frontal view of the chest is obtained. There is a small nodular opacity overlying the right lower thorax possibly due to overlying osseous shadows. There is no consolidation, pleural effusion or pneumothorax. The heart is normal in size. Left knee: 4 views of the left knee are obtained. There is medial and patellofemoral compartment join t space narrowing, subchondral sclerosis and marginal spurring. There is also moderate lateral compar tment spurring. There is a small joint effusion. There is an infrapatellar joint loose body. IMPRESSION: 1. No acute pulmonary finding. 2. Severe medial and patellofemoral compartment predominant osteoarthritis of the left knee with smal l joint effusion and joint loose body. 3. Small nodular opacity overlying the right lower thorax possibly due to overlying osseous artifact. Short-term sonographic follow-up or lateral radiograph may be useful to exclude a noncalcified nodul e in this location. Electronically signed by: Esther Cruz MD (05/27/2021 11:52 AM) [id number]
[2021-05-27 12:17] LABS: BASO % 1 % (0-3); EOS % 0 % (0-3); HEMOGLOBIN 14.2 g/dL (12.0-15.5); LYMPH # 1.8 x10^3/uL (1.0-4.8); LYMPH % 29 % (24-48); MEAN CORPUSCULAR HEMOGLOBIN 32 pg (25-35); MEAN CORPUSCULAR HGB CONC 34 g/dL (31-37); MEAN CORPUSCULAR VOLUME 95 fL (79-100); MONO # 0.5 x10^3/uL (0.0-1.1); MONO % 9 % (0-9); NEUT # 3.8 x10^3/uL (1.8-7.7); NEUT % 61 % (31-73); PLATELET COUNT 204 x10^3/uL (140-400); RED BLOOD COUNT 4.43 x10^6/uL (3.50-5.40); RED CELL DISTRIBUTION WIDTH 12.9 % (11.5-14.5); WHITE BLOOD COUNT 6.2 x10^3/uL (4.0-11.0)
[2021-05-27 12:41] LABS: CALCIUM 8.6 mg/dL (8.5-10.1); CREATININE 1.5 mg/dL (0.6-1.0); GFR 34.9; POTASSIUM 4.1 mmol/L (3.5-5.1)
[2021-05-27 12:47] LABS: ALBUMIN 3.9 g/dL (3.4-5.0); TOTAL BILIRUBIN 0.4 mg/dL (0.2-1.0); TOTAL PROTEIN 7.9 g/dL (6.4-8.2)
--- NOTE | 2021-05-27 12:52 | RAD ---
STUDY: CT head and cervical spine without contrast INDICATION: Syncope. Fall. COMPARISON: None. TECHNIQUE: Axial CT imaging through the head and cervical spine without the use of intravenous contra st. Sagittal and coronal reformats were obtained. One or more of the following individualized dose reduction techniques were utilized for this examinat ion: 1. Automated exposure control 2. Adjustment of the mA and/or kV according to patient size 3. Use of iterative reconstruction technique. FINDINGS: CT head: No acute intracranial hemorrhage. No mass effect, midline shift or hydrocephalus. Sarah-white matter d ifferentiation is maintained. No depressed calvarial fracture. No layering fluid seen within the visualized paranasal sinuses. Well aerated mastoid air cells and middle ears. CT cervical spine: Degraded study secondary to beam attenuation mainly below C4. No acute fracture. No traumatic malalignment. Multilevel degenerative changes with associated grade 1 anterolisthesis of C4 on C5 and C5 on C6. Aman tral canal stenosis favored greatest at C6-C7. Osseous neural foraminal stenosis ranging from mild to moderate in severity and favored greatest on the right at C5-C6. No paraspinous hematoma to indicate an occult fracture. Vascular calcifications. No apical pneumothor ax. IMPRESSION: CT head: 1. No acute intracranial abnormality by CT. Intact calvarium. CT cervical spine: 1. No acute fracture or traumatic malalignment. 2. Varying extent of multifactorial degenerative changes of the cervical and upper thoracic spine wi th central canal stenosis estimated up to moderate such as at C6-C7. Electronically signed by: JAN ELIAS MD (05/27/2021 12:49 PM) [facility]ITAL[facility]
[2021-05-27] MEDS ORDERED: IOHEXOL 350 MG/ML 100 ML VIAL. IV ONE (15:00)
[2021-05-27] MEDS ORDERED: ACETAMINOPHEN 325 MG TABLET. PO ONE (15:00)
[2021-05-27] MEDS ORDERED: CONTRAST GIVEN. MC PRN (15:00)
--- NOTE | 2021-05-27 15:25 | RAD ---
EXAM: CT angiography of the chest with intravenous contrast. HISTORY: Syncope. Right frontal branch block. TECHNIQUE: Computed tomographic images of the chest were obtained following the administration of int ravenous contrast according to angiography protocol. Multiplanar reformatting was performed and three dimensional maximum intensity projection images were obtained. *One or more of the following individualized dose reduction techniques were utilized for this examina tion: 1. Automated exposure control. 2. Adjustment of the mA and/or kV according to patient size. 3. Use of iterative reconstruction technique. COMPARISON: None. FINDINGS: There is no convincing pulmonary embolism. The heart is normal in size. The aorta is normal in caliber. There are nonspecific mediastinal and hilar lymph nodes. These are likely physiologic or reactive in etiology. There is no pleural effusion or pneumothorax. There is a 2 mm benign peripheral nodular opacity within the lateral right upper lobe (series 3, imag e 41). This may be a faintly calcified granuloma. There is bilateral posterior dependent and basilar atelectasis. There is lingular and right middle lobe scarring. There is no acute finding involving the upper abdomen. There is a 2.1 cm right adrenal nodule, the at tenuation of which is greater than expected for an adenoma. There is suspected hepatic steatosis. The re is colonic diverticulosis. There are degenerative changes involving the spine. There is no acute o sseous finding. IMPRESSION: 1. No evidence of pulmonary embolism or acute infiltrate. 2. Nonspecific mediastinal and hilar lymph nodes, likely physiologic or reactive. 3. 2.1 cm right adrenal nodule, the attenuation of which is slightly greater than expected for an claudio noma. In the absence of prior studies to assess for interval change, evaluation with an adrenal dean col CT or MRI can be performed for characterization. 4. Incidental colonic diverticulosis and suspected hepatic steatosis. Electronically signed by: Esther Cruz MD (05/27/2021 3:22 PM) [id number]
[2021-05-27 15:30] LABS: BILIRUBIN,URINE NEGATIVE (NEG); CLARITY,URINE CLEAR; COLOR,URINE YELLOW; NITRITE,URINE POSITIVE (NEG); PROTEIN,URINE NEGATIVE (NEG-TRACE); UROBILINOGEN,URINE 0.2 mg/dL (0.2 mg/dL)
[2021-05-27 15:38] LABS: BARBITURATES NEG (NEG); BENZODIAZEPINES NEG (NEG); CANNABINOIDS NEG (NEG); COCAINE NEG (NEG); METHADONE NEG (NEG); OPIATES NEG (NEG); PHENCYCLIDINE NEG (NEG)
[2021-05-27 15:41] LABS: AMPHETAMINE/METHAMPHETAMINE NEG (NEG); BACTERIA,URINE MANY /HPF (0-FEW); HYALINE CASTS, URINE MANY /HPF; RBC,URINE 0 /HPF (0-2); WBC,URINE 20-40 /HPF (0-4); YEAST,URINE PRESENT /HPF
[2021-05-27] MEDS ORDERED: CEPH500C PO (16:08)
[2021-05-27] MEDS ORDERED: FLUC150T PO (16:08)
[2021-05-27] MEDS ORDERED: cefTRIAXone IV Push 1 GM VIAL. IVP ONE (16:30)
[2021-05-27] MEDS ORDERED: FLUCONAZOLE 100 MG TABLET. PO ONE (16:30)
[2021-05-27 16:37] VITALS: BP 163/76
--- NOTE | 2021-05-27 19:53 | EKG ---
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
== END 2021-05-27 16:35 | disposition home or self-care (01) ==
LOC: ER 11:04
DX: S09.90XA Unspecified injury of head, initial encounter (principal); I45.10 Unspecified right bundle-branch block; I95.1 Orthostatic hypotension; E86.0 Dehydration; N30.00 Acute cystitis without hematuria; B37.9 Candidiasis, unspecified; M17.12 Unilateral primary osteoarthritis, left knee; E11.40 Type 2 diabetes mellitus with diabetic neuropathy, unspecified; F32.9 Major depressive disorder, single episode, unspecified; Z87.891 Personal history of nicotine dependence; Z88.1 Allergy status to other antibiotic agents; Z91.041 Radiographic dye allergy status; Z91.018 Allergy to other foods; W18.39XA Other fall on same level, initial encounter; Y93.89 Activity, other specified; Y92.89 Other specified places as the place of occurrence of the external cause; Y99.8 Other external cause status
CPT/HCPCS: 36415; 70450; 71045; 71275; 72125; 73564; 80053; 80307; 81001; 83880; 84484; 85025; 85379; 87086; 93005; 96361; 96374; 99285; J0696; J7030; Q9967; 87077; 87186